=== PATIENT | male | born 1960 | race Caucasian/White ===

== ENCOUNTER 2019-07-22 21:28 | Emergency (ER) | payer SELFPAY ==
[2019-07-22 22:45] LABS: ABSOLUTE EOSINOPHILS # (AUTO) 0.2 10^3/uL (0.0-0.6); ABSOLUTE LYMPHOCYTES (AUTO) 1.8 10^3/uL (0.5-4.7); ABSOLUTE MONOCYTES (AUTO) 0.5 10^3/uL (0.1-1.4); ABSOLUTE NEUT (AUTO) 7.2 10^3/uL (1.7-8.2); BASOPHILS % (AUTO) 0.5 % (0-2); EOSINOPHILS % (AUTO) 1.6 % (0-6); HEMATOCRIT 43.8 % (37.9-51.0); LYMPHOCYTES % (AUTO) 18.3 % (13-45); MEAN CORPUSCULAR HEMOGLOBIN 31.4 pg (27.0-33.4); MEAN CORPUSCULAR HGB CONC 34.2 g/dL (32.0-36.0); MEAN CORPUSCULAR VOLUME 92 fl (80-97); MONOCYTES % (AUTO) 5.3 % (3-13); PLATELET COUNT 135 10^3/uL (150-450); RED BLOOD COUNT 4.78 10^6/uL (4.35-5.55); RED CELL DISTRIBUTION WIDTH 14.3 % (11.5-14.0); SEGMENTED NEUTROPHILS % (AUTO) 74.3 % (42-78); TOTAL CELLS COUNTED % (AUTO) 100 %; WHITE BLOOD COUNT 9.7 10^3/uL (4.0-10.5)
--- NOTE | 2019-07-22 22:49 | ER Document Report ---
ED Cardiac - General Chief Complaint: Chest Pain > 30 Stated Complaint: CHEST PAIN Time Seen by Provider: 07/22/19 22:21 Mode of Arrival: Medic Information source: Patient Notes: 59-year-old male patient presents the emergency department via EMS for midsternal chest pain. Patient reports pain started 2 days ago, worsening over the last 24 hours. He states the pain is associated shortness of breath, nausea and diaphoresis. He states the pain radiates up into his neck and left arm. He denies any history of OR. He denies having knowledge of ever having an abnormal EKG. He does have a history of an aortic valve replacement 13 years ago. He states he is scheduled to see a dental hygiene administrative assistant next week at [facility] to consult on replacing the aortic valve. EMS gave him 2 sprays of nitroglycerin, patient reports the pain did go down initially but has peaked back up. Pain is currently 3/5. The only medication he takes is an [id number] sleep aid. - Related Data Allergies/Adverse Reactions: No Known Allergies Allergy (Verified 07/22/19 22:34) Past Medical History - General Information source: Patient - Social History Smoking Status: Current Every Day Smoker Chew tobacco use (# tins/day): No Frequency of alcohol use: Occasional Drug Abuse: None Family History: Reviewed & Not Pertinent Patient has homicidal ideation: No - Past Medical History Cardiac Medical History: Reports: Other - Aortic valve replacement 13 years ago, does not take any blood thinners. Review of Systems - Review of Systems Constitutional: No symptoms reported EENT: No symptoms reported Cardiovascular: Chest pain Respiratory: Short of breath Gastrointestinal: Nausea -: Yes All other systems reviewed and negative Physical Exam - Vital signs Vitals: Pulse Ox 99 07/22/19 21:52 - Notes Notes: PHYSICAL EXAMINATION: GENERAL: Well-nourished and in no acute distress. HEAD: Atraumatic, normocephalic. EYES: Pupils equal round and reactive to light, extraocular movements intact, sclera anicteric, conjunctiva are normal. ENT: Nares patent, oropharynx clear without exudates. Moist mucous membranes. NECK: Normal range of motion, supple without lymphadenopathy LUNGS: Breath sounds clear to auscultation bilaterally and equal. No wheezes rales or rhonchi. HEART: Regular rate and rhythm without murmurs ABDOMEN: Soft, nontender, nondistended abdomen. No guarding, no rebound. No masses appreciated. Musculoskeletal: Normal range of motion, no pitting or edema. No cyanosis. NEUROLOGICAL: Cranial nerves grossly intact. Normal speech, normal gait. Normal sensory, motor exams PSYCH: Normal mood, normal affect. SKIN: Warm, Dry, normal turgor, no rashes or lesions noted. Course - Re-evaluation Re-evalutation: 07/22/19 22:48 EKG shows a left bundle branch block with ST segment elevations. There is no comparison. Dr. Garcia came to the room and evaluated the patient with me. Patient was seen in the last few months at [facility]. We will try to obtain EKG. Dr. Garcia has also placed a phone call to cardiology on-call, Dr. Duran who will also review patient's EKG. Dr. Duran spoke with Dr. Garcia, EKG was reviewed and per Dr. Duran does not meet Sgarbossa criteria. 07/22/19 23:20 Call placed to [facility] for transfer. Patient's troponin is elevated. Patient still reports 2/5 chest pain. Nurse currently administrating sublingual nitroglycerin. Patient otherwise stable at this time. 07/22/19 23:23 EKG comparison received from [facility], dated 04/12/2019. This EKG does show a left bundle branch block. However there are changes on the current EKG. Laboratory 07/22/19 07/22/19 07/22/19 22:20 22:20 22:20 WBC 9.7 RBC 4.78 Hgb 15.0 Hct 43.8 MCV 92 MCH 31.4 MCHC 34.2 RDW 14.3 H Plt Count 135 L Lymph % (Auto) 18.3 [place] % (Auto) 5.3 Eos % (Auto) 1.6 Baso % (Auto) 0.5 Absolute Neuts (auto) 7.2 Absolute Lymphs (auto) 1.8 Absolute Monos (auto) 0.5 Absolute Eos (auto) 0.2 Absolute Basos (auto) 0.0 Seg Neutrophils % 74.3 PT INR APTT Sodium 135.7 L Potassium 4.2 Chloride 104 Carbon Dioxide 28 Anion Gap 4 L BUN 18 Creatinine 1.23 Est GFR ( Amer) > 60 Est GFR (MDRD) Non-Af > 60 Glucose 108 Calcium 8.8 Total Bilirubin 0.3 Direct Bilirubin 0.0 Neonat Total Bilirubin Not Reportable Neonat Direct Bilirubin Not Reportable Neonat Indirect Bili Not Reportable AST 26 ALT 14 Alkaline Phosphatase 58 Creatine Kinase 92 CK-MB (CK-2) 3.07 Troponin I 0.137 NT-Pro-B Natriuret Pep Total Protein 6.3 Albumin 3.6 07/22/19 07/22/19 22:20 22:20 WBC RBC Hgb Hct MCV MCH MCHC RDW Plt Count Lymph % (Auto) [place] % (Auto) Eos % (Auto) Baso % (Auto) Absolute Neuts (auto) Absolute Lymphs (auto) Absolute Monos (auto) Absolute Eos (auto) Absolute Basos (auto) Seg Neutrophils % PT 13.3 INR 1.01 APTT 31.6 Sodium Potassium Chloride Carbon Dioxide Anion Gap BUN Creatinine Est GFR ( Amer) Est GFR (MDRD) Non-Af Glucose Calcium Total Bilirubin Direct Bilirubin Neonat Total Bilirubin Neonat Direct Bilirubin Neonat Indirect Bili AST ALT Alkaline Phosphatase Creatine Kinase CK-MB (CK-2) Troponin I NT-Pro-B Natriuret Pep 2450 H Total Protein Albumin Chest X-Ray 07/22/19 22:17 IMPRESSION: Cardiomegaly with mixed interstitial and airspace opacities bilaterally, consistent with edema and/or pneumonia copyright 2011 [employer]- All Rights Reserved HEART Score: History 2 ECG 1 Age 1 Risk Factors 1 Troponin 1 Total: 6 07/22/19 23:[address] Foss, hospitalist at [facility]. 07/23/19 00:05 Patient accepted for transfer to [facility] by Dr. Foss. 07/23/19 02:10 Patient reevaluated. He reports chest pain 1/. He has nitroglycerin drip infusing, he is also on a heparin drip. He is stable for transport at this time. - Vital Signs Vital signs: Temp Pulse Resp BP Pulse Ox 98.2 F 26 H 102/42 L 93 07/22/19 22:12 07/23/19 02:07 07/23/19 02:07 07/23/19 02:07 - Laboratory Result Diagrams: 07/22/19 22:20 07/22/19 22:20 Laboratory results interpreted by me: 07/22/19 07/22/19 07/22/19 22:20 22:20 22:20 RDW 14.3 H Plt Count 135 L Sodium 135.7 L Anion Gap 4 L NT-Pro-B Natriuret Pep 2450 H - Diagnostic Test Radiology reviewed: Image reviewed, Reports reviewed - EKG Interpretation by Me EKG shows normal: ST-T Waves Rate: Normal [place]/QRS: Left axis deviation When compared to previous EKG there are: Changes noted - when compared to EKG dated 04/12/2019 from [facility] - Discharge Clinical Impression: NSTEMI (non-ST elevated myocardial infarction) Condition: Fair Disposition: [facility]
--- NOTE | 2019-07-22 22:52 | RADIOLOGY REPORT (SQ) ---
EXAM DESCRIPTION: XR CHEST 1 VIEW COMPLETED DATE/TME: 07/22/2019 22:17 CLINICAL HISTORY: 59 years, Male, chest pain COMPARISON: None. NUMBER OF VIEWS: 2 TECHNIQUE: AP views of the chest LIMITATIONS: None. FINDINGS: Cardiomegaly. Median sternotomy wires. Mixed interstitial and airspace opacities bilaterally may reflect pulmonary edema and/or pneumonia. No pneumothorax IMPRESSION: Cardiomegaly with mixed interstitial and airspace opacities bilaterally, consistent with edema and/or pneumonia copyright 2011 [employer]- All Rights Reserved
[2019-07-22 23:00] LABS: ALBUMIN 3.6 g/dL (3.5-5.0); ALKALINE PHOSPHATASE 58 U/L (38-126); ASPARTATE AMINO TRANSFERASE 26 U/L (17-59); BILIRUBIN,TOTAL 0.3 mg/dL (0.2-1.3); BLOOD UREA NITROGEN 18 mg/dL (7-20); CALCIUM 8.8 mg/dL (8.4-10.2); CHLORIDE 104 mmol/L (98-107); CREATINE KINASE 92 U/L (55-170); GLUCOSE 108 mg/dL (75-110); POTASSIUM 4.2 mmol/L (3.6-5.0); TOTAL PROTEIN 6.3 g/dL (6.3-8.2)
[2019-07-22 23:07] LABS: CARBON DIOXIDE 28 mmol/L (22-30); INTERNATIONAL RATION (INR) 1.01; PROTHROMBIN TIME 13.3 SEC (11.4-15.4)
[2019-07-22 23:08] LABS: PARTIAL THROMBOPLASTIN TIME 31.6 SEC (23.5-35.8)
[2019-07-22 23:09] LABS: ANION GAP 4 (5-19)
[2019-07-22 23:12] LABS: CREATINE KINASE MB 3.07 ng/mL (<4.55)
[2019-07-22 23:14] LABS: TROPONIN I 0.137 ng/mL
[2019-07-22] MEDS: NITROGLYCERIN 0.4 MG/TAB 25 TAB/BOTTLE SL PRN ×2 (23:21→23:27)
[2019-07-22] MEDS ORDERED: NITROGLYCERIN 0.4 MG/TAB 25 TAB/BOTTLE SL PRN (23:34)
[2019-07-22] MEDS ORDERED: NITROGLYCERIN/D5W 50 MG/250 ML RTUINJ IV PRN (23:48)
[2019-07-22] MEDS ORDERED: HEPARIN SOD (PORCINE) 1,000 UNIT/ML 10 ML VIAL IV ONE (23:48)
[2019-07-22] MEDS ORDERED: HEPARIN SODIUM,PORCINE/D5W 25,000 UNIT/250 ML RTUINJ IV PRN (23:48)
[2019-07-23 03:10] VITALS: BP 130/61
--- NOTE | 2019-07-23 07:19 | EKG REPORT ---
SEVERITY:- ABNORMAL ECG - SINUS RHYTHM BIATRIAL ABNORMALITIES LEFT BUNDLE BRANCH BLOCK : Confirmed by: Keanu Ribeiro MD 23-Jul-2019 07:19:18
--- NOTE | 2019-07-23 15:37 | EKG REPORT ---
SEVERITY:- ABNORMAL ECG - SINUS RHYTHM JACKLYN, CONSIDER BIATRIAL ABNORMALITIES LEFT BUNDLE BRANCH BLOCK : Confirmed by: Keanu Ribeiro MD 23-Jul-2019 15:36:15
== END 2019-07-23 03:10 | disposition short-term general hospital (02) ==
LOC: EDBD → ER 21:28
DX: I21.4 Non-ST elevation (NSTEMI) myocardial infarction (principal); R07.9 Chest pain, unspecified; R11.0 Nausea; R06.02 Shortness of breath; F17.200 Nicotine dependence, unspecified, uncomplicated
CPT/HCPCS: 93005; 96376; 99285; 96365; 96366; 96368; 36415; 82553; 82550; 85025; 85610; 85730; 80053; 84484; 83880; 71045; 93010; J1644 ×2; J3490